=== PATIENT | male | born 1970 | race Caucasian/White ===

== ENCOUNTER 2023-06-06 06:13 | Day surgery (SDC) | payer BC ==
[2023-06-05 09:58] VITALS: BMI 55.4
[2023-06-06] MEDS ORDERED: PROPOFOL 200 MG/20 ML VIAL ONE (08:20)
[2023-06-06] MEDS ORDERED: Lidocaine 1% PF 5 ML VIAL ONE (08:20)
== END 2023-06-06 09:55 | disposition home or self-care (01) ==
LOC: SDC 06:13
PROVIDERS: ATTEND Internal Medicine Gastroenterology
PROC: 0DBK8ZZ Excision of Ascending Colon, Via Natural or Artificial Opening Endoscopic (ICD-10-PCS; principal; 2023-06-06)
DX: Z12.11 Encounter for screening for malignant neoplasm of colon (principal); D12.2 Benign neoplasm of ascending colon; E66.9 Obesity, unspecified; Z68.43 Body mass index [BMI] 50.0-59.9, adult; Z90.49 Acquired absence of other specified parts of digestive tract
CPT/HCPCS: 88305; J2704